=== PATIENT | female | born 1985 | race Caucasian/White ===

== ENCOUNTER 2025-04-16 12:36 | Inpatient (IN) | payer OTHER ==
[2025-04-16 13:05] VITALS: BMI 20.9
[2025-04-16] MEDS ORDERED: BENZONATATE 200 MG CAPSULE PO PRN (13:28)
[2025-04-16] MEDS ORDERED: NALOXONE (NARCAN) HCL 4 MG/0.1 ML SPRAY NS PRN (13:28)
[2025-04-16] MEDS ORDERED: LOPERAMIDE HCL 2 MG CAPSULE PO PRN (13:28)
[2025-04-16] MEDS ORDERED: BISMUTH SUBSALICYLATE 524 MG/30 ML PO PRN (13:28)
[2025-04-16] MEDS ORDERED: ACETAMINOPHEN 325 MG TABLET (FP) PO PRN (13:28)
[2025-04-16] MEDS ORDERED: MAGNESIUM HYDROX 2400MG/30ML ORAL SUSPENSION 30 ML CUP PO PRN (13:28)
[2025-04-16] MEDS ORDERED: BENZOCAINE/MENTHOL (CHLORASEPTIC ) LOZENGE MM PRN (13:28)
[2025-04-16] MEDS ORDERED: IBUPROFEN 400 MG TABLET (FP) PO PRN (13:28)
[2025-04-16] MEDS ORDERED: guaiFENesin 600 MG TABLET.ER (FP) PO PRN (13:28)
[2025-04-16] MEDS ORDERED: DICYCLOMINE HCL 10 MG CAPSULE PO PRN (13:28)
[2025-04-16] MEDS ORDERED: MAG HYDROX/AL HYDROX/SIMETH 30 ML UNIT-DOSE CUP PO PRN (13:28)
[2025-04-16] MEDS ORDERED: POLYETHYLENE GLYCOL (HEALTHYLAX) 3350 17 GM PACKET PO PRN (13:28)
[2025-04-16] MEDS ORDERED: ONDANSETRON *ODT* 4 MG TABLET ONE (13:47)
[2025-04-16] MEDS: ONDANSETRON *ODT* 4 MG TABLET SL PRN (13:49)
[2025-04-16] MEDS: PRENATAL VITAMINS W/ FOLIC ACID TABLET (FP) PO SCH (13:51)
[2025-04-16] MEDS: THIAMINE 100 MG TABLET PO SCH (22:12)
[2025-04-16] MEDS: MELATONIN 5 MG TABLETS PO SCH (22:12)
[2025-04-16] MEDS: METHOCARBAMOL 500 MG TABLET PO PRN (22:13)
[2025-04-17] MEDS: NICOTINE 7 MG/24 HOURS TOPICAL PATCH TD SCH (10:13)
[2025-04-17 13:19] LABS: RDW 12.8 % (12.2-17.1)
[2025-04-17 13:21] LABS: MCHC 32.2 g/dl (32.2-35.5); MEAN CELL VOLUME 94.4 fl (79.4-94.8); MEAN PLT VOLUME 11.8 fl (9.4-12.3)
[2025-04-17 13:48] LABS: CO2 31 mmol/L (21-32); GLUCOSE,RANDOM 75 mg/dL (74-106)
[2025-04-17 13:52] LABS: CREATININE 0.7 mg/dL (0.55-1.3); SGOT/AST 18 U/L (15-37); SGPT/ALT 21 U/L (13-61)
[2025-04-17 13:53] LABS: TOT PROT 5.8 g/dl (6.4-8.2)
[2025-04-17 13:54] LABS: ALK PHOS 75 U/L (45-117)
[2025-04-18] MEDS: IBUPROFEN 600 MG TABLET (FP) PO PRN (05:47)
[2025-04-18] MEDS: hydrOXYzine PAMOATE 25 MG CAPSULE (FP) PO PRN (08:54)
[2025-04-20] MEDS: methaDONE 160 MG, methaDONE (DETOX) 10 MG PO ONE (05:50)
[2025-04-20 07:14] VITALS: TEMP 97.8
[2025-04-20 09:17] VITALS: BP 118/99; PULSE 67; RESP 16
== END 2025-04-20 09:30 | disposition home or self-care (01) | DRG 773 ==
LOC: YASAS 12:36 → Y6N 13:54
PROVIDERS: ADMIT Allergy & Immunology; ATTEND Allergy & Immunology
PROC: HZ2ZZZZ Detoxification Services for Substance Abuse Treatment (ICD-10-PCS; principal; 2025-04-16)
PROC: HZ2ZZZZ Detoxification Services for Substance Abuse Treatment (ICD-10-PCS; 2025-04-16)
DX: F13.230 Sedative, hypnotic or anxiolytic dependence with withdrawal, uncomplicated (principal); F11.20 Opioid dependence, uncomplicated; F10.20 Alcohol dependence, uncomplicated; F14.20 Cocaine dependence, uncomplicated; G47.00 Insomnia, unspecified; F41.8 Other specified anxiety disorders
CPT/HCPCS: 36415; 80053; 80305; 80307; 81025; 85027; 86780; 93005; 93010; Q0162